=== PATIENT | male | born 1940 | race Caucasian/White ===

== ENCOUNTER 2021-05-18 21:53 | Emergency (ER) | payer MEDICARE, OTHER, SELFPAY ==
[2021-05-18 22:00] VITALS: BP 90/50; PULSE 56; RESP 20; O2SAT 94; BMI 23.2
[2021-05-18 22:01] VITALS: PULSE 53; RESP 19; O2SAT 95
[2021-05-18 22:02] VITALS: BP 107/56; PULSE 51; RESP 14; O2SAT 95
--- NOTE | 2021-05-18 22:13 | DI.RAD.S_ITS ---
PROCEDURE: XR CHEST 1V INDICATIONS: near syncope TECHNIQUE: One view of the chest was acquired. COMPARISON: None. FINDINGS: Surgical changes and devices: Surgical clips near the GE junction. Lungs and pleura: Lungs are clear. No pleural effusions or pneumothorax. Mediastinum: Mediastinal contours appear normal. Heart size is normal. Coronary artery stent visible. Bones and chest wall: No suspicious bony lesions. Degenerative endplate spurs in the thoracic spine. Overlying soft tissues appear unremarkable. IMPRESSION: No acute cardiopulmonary disease. Dictated by: Fang Marley M.D. on 05/18/2021 at 22:24 Approved by: Fang Marley M.D. on 05/18/2021 at 22:25
[2021-05-18 22:28] LABS: Add Manual Diff / Slide Review NO; Basophils Absolute Auto 0 /uL (0-100); Basophils Percent Auto 0.3 % (0-2); Eosinophils Absolute Auto 100 /uL (0-450); Eosinophils Percent Auto 1.4 % (2-4); Hematocrit 41.2 % (41-53); Hemoglobin 13.5 g/dL (13.5-17.5); Lymphocytes Absolute Auto 1900 /uL (1100-4500); Lymphocytes Percent Auto 23.1 % (25-40); Mean Corpuscular HGB Conc 32.7 % (30-36); Mean Corpuscular Hemoglobin 28.9 PG (26-34); Mean Corpuscular Volume 88.4 fL (80-100); Monocytes Absolute Auto 800 /uL (0-900); Monocytes Percent Auto 9.5 % (3-14); Neutrophils Absolute Auto 5500 /uL (1500-7000); Neutrophils Percent Auto 65.7 % (50-75); Platelet Count 199 X10^3/uL (150-400); Red Blood Cell Count 4.66 X10^6/uL (4.5-5.9); White Blood Cell Count 8.3 X10^3/uL (4.5-11.0)
[2021-05-18 22:30] VITALS: BP 94/58; PULSE 53; RESP 13; O2SAT 95
[2021-05-18 22:35] LABS: Alanine Aminotransferase 26 IU/L (<50); Albumin 3.6 g/dL (3.5-5.0); Albumin Globulin Ratio 1.4 (1.0-2.8); Alkaline Phosphatase 98 U/L (38-126); Aspartate Aminotransferase 32 IU/L (17-59); BUN Creatinine Ratio 14.8 (6-22); Bilirubin Total 1.4 mg/dL (0.2-1.3); Blood Urea Nitrogen 20 mg/dL (9-20); Calcium 8.9 mg/dL (8.4-10.2); Carbon Dioxide 24 mmol/L (22-32); Chloride 111 mmol/L (98-107); Creatine Kinase 98 U/L (55-170); Estimated Glomerular Filt Rate 51.1 mL/min (>60); Globulin 2.5 g/dL (1.7-4.1); Glucose 112 mg/dL (80-110); HEMOLYSIS 29 (0-50); Lipase 104 U/L (23-300); Potassium 4.1 mmol/L (3.4-5.1); Sodium 143 mmol/L (137-145); Total Protein 6.1 g/dL (6.3-8.2)
[2021-05-18 22:47] LABS: Troponin I < 0.012 ng/mL (0.01-0.034)
[2021-05-18 23:00] VITALS: BP 97/57; PULSE 57; RESP 13; O2SAT 95
--- NOTE | 2021-05-18 23:06 | ED_ITS ---
HPI - Dizziness General Chief Complaint: Syncope Stated Complaint: nausea, diarrhea hypotension Time Seen by Provider: 05/18/21 21:55 Source: patient and EMS Mode of arrival: EMS Limitations: no limitations History of Present Illness HPI Narrative: Patient 80-year-old male with history of coronary artery disease presenting with diarrhea dizziness and hypotension. He said he started to not feel well early this afternoon this evening he had a very large continuous episodes of diarrhea. He got dizzy and lightheaded as afterwards try to set up the had to lay back down. His sed previously when he had heart attack he did not really have symptoms he was worried that this might be hard to talk so he took nitroglycerin. He tried to sit up again and again felt very dizzy and lightheaded. He never passed out. He denies any chest pain or palpitations. He has no numbness tingling or weakness. He has no nausea or vomiting. He has no abdominal pain. He says that the diarrhea was not black or bloody that he noticed. He is not on any anticoagulation. Related Data Home Medications Medication Instructions Recorded Confirmed aspirin 81 mg tablet 81 mg PO DAILY 05/18/21 05/18/21 atorvastatin 40 mg tablet (Lipitor) 40 mg PO DAILY 05/18/21 05/18/21 carvedilol 6.25 mg tablet 6.25 mg PO BID 05/18/21 05/18/21 cholecalciferol (vitamin D3) 50 50 mcg PO DAILY 05/18/21 05/18/21 mcg (2,000 unit) capsule (Vitamin D3) nitroglycerin 0.4 mg sublingual 0.4 mg SUBLINGUAL Q5-15M PRN 05/18/21 05/18/21 tablet Allergies Allergy/AdvReac Type Severity Reaction Status Date / Time No Known Drug Allergies Allergy Verified 05/19/21 00:45 Review of Systems Review of Systems ROS Unobtainable: All systems reviewed & are unremarkable except as noted in HPI and below Constitutional Constitutional: Denies body ache(s), Denies chills, Denies fatigue and Denies headache(s) Eyes Eyes: Denies blurry vision and Denies diplopia ENT Ears, Nose, Mouth, and Throat: Denies vertigo, Reports dizziness and Denies headache(s) Cardiovascular Cardiovascular: Denies chest pain, Denies rapid heart rate, Denies irregular heart rhythm, Reports lightheadedness, Denies dyspnea and Denies dyspnea on exertion Respiratory Respiratory: Denies cough, Denies dyspnea and Denies dyspnea on exertion Gastrointestinal Gastrointestinal: Reports as per HPI, Reports abdominal pain, Denies nausea and Denies vomiting Genitourinary Genitourinary: Denies urinary frequency and Denies urinary hesitancy Integumentary/Breasts Skin/Breast: Denies rash Neurologic Neurologic: Reports as per HPI, Denies confusion, Denies vertigo, Reports dizziness and Denies headache(s) Psychiatric Psychiatric: Denies confusion Endocrine Endocrine: Denies fatigue Patient History Social History Smoking Status: Never smoker Smoking Status: Never smoker alcohol intake frequency: holidays/special occasions only Substance Use Type: does not use Exam Initial Vital Signs Initial Vital Signs: Vital Signs Pulse Rate 56 L 05/18/21 22:00 Respiratory Rate 20 05/18/21 22:00 Blood Pressure 90/50 L 05/18/21 22:00 Pulse Oximetry 94 05/18/21 22:00 GENERAL: Alert well-appearing 80-year-old maleand in [no acute] distress. HEENT: Head atraumatic,EOMI, pupils reactive, face symmetric, [moist] mucous membranes CARDIOVASCULAR: Regular rate and rhythm without murmurs, rubs or gallops. RESPIRATORY: Breath sounds equal bilaterally, no wheezes rales or rhonchi. ABDOMEN: Soft, nontender. Normoactive bowel sounds all 4 quadrants. No guarding or rebound. EXTREMITIES: Normal range of motion, no clubbing or edema. Neurovascularly intact NEUROLOGICAL: Alert and oriented x4.Normal gait and speech. SKIN: Warm, dry, no laceration, no petechiae, no rashes or lesions. Course Orders Ordered: ED Orders 05/18/21 21:30 Complete Blood Count AUTO DIFF Stat Comprehensive Metabolic Panel Stat Lipase Stat Troponin & CK Cardiac Panel Stat 05/18/21 22:13 XR chest 1V Stat EKG-12 Lead Stat 05/18/21 23:30 Troponin I Stat Discontinued Medications Sodium Chloride (Normal Saline 0.9%) 1,000 mls @ 1,000 mls/hr IV BOLUS ONE Stop: 05/19/21 01:42 Last Infusion: 05/19/21 01:44 Dose: 0 mls/hr Documented by: Admin: 05/19/21 00:50 Dose: 1,000 mls/hr Documented by: MARÍA ELENA Vital Signs Vital signs: Vital Signs - 8 hr 05/18/21 22:00 05/18/21 22:01 05/18/21 22:02 Pulse Rate 56 L 53 L 51 L Respiratory Rate 20 19 14 Blood Pressure 90/50 L 107/56 L Pulse Oximetry 94 95 95 05/18/21 22:30 05/18/21 23:00 05/18/21 23:30 Pulse Rate 53 L 57 L 63 Respiratory Rate 13 13 19 Blood Pressure 94/58 L 97/57 L 95/52 L Pulse Oximetry 95 95 96 05/19/21 00:00 05/19/21 00:30 05/19/21 01:00 Pulse Rate 61 61 73 Respiratory Rate 17 15 13 Blood Pressure 95/57 L 100/57 L 92/55 L Pulse Oximetry 97 98 97 05/19/21 01:04 05/19/21 01:25 05/19/21 01:30 Pulse Rate 73 82 63 Respiratory Rate 19 Blood Pressure 125/62 111/59 L 111/61 Pulse Oximetry 99 96 97 MDM - Dizziness Lab Data Result diagrams: 05/18/21 21:30 05/18/21 21:30 Labs: Lab Results 05/18/21 05/18/21 05/19/21 Range/Units 21:30 21:30 00:08 WBC 8.3 (4.5-11.0) X10^3/uL RBC 4.66 (4.5-5.9) X10^6/uL Hgb 13.5 (13.5-17.5) g/dL Hct 41.2 (41-53) % MCV 88.4 (80-100) fL MCH 28.9 (26-34) PG MCHC 32.7 (30-36) % RDW 14.0 (11.6-14.8) % Plt Count 199 (150-400) X10^3/uL Neut % (Auto) 65.7 (50-75) % Lymph % (Auto) 23.1 L (25-40) % [place] % (Auto) 9.5 (3-14) % Eos % (Auto) 1.4 L (2-4) % Baso % (Auto) 0.3 (0-2) % Neut # (Auto) 5500 (4358-4968) /uL Lymph # (Auto) 1900 (6382-8339) /uL [place] # (Auto) 800 (0-900) /uL Eos # (Auto) 100 (0-450) /uL Baso # (Auto) 0 (0-100) /uL Sodium 143 (137-145) mmol/L Potassium 4.1 (3.4-5.1) mmol/L Chloride 111 H (98-107) mmol/L Carbon Dioxide 24 (22-32) mmol/L BUN 20 (9-20) mg/dL Creatinine 1.35 H (0.66-1.25) mg/dL Estimated GFR 51.1 L (>60) mL/min BUN/Creatinine Ratio 14.8 (6-22) Glucose 112 H (80-110) mg/dL Calcium 8.9 (8.4-10.2) mg/dL Total Bilirubin 1.4 H (0.2-1.3) mg/dL AST 32 (17-59) IU/L ALT 26 (<50) IU/L Alkaline Phosphatase 98 (38-126) U/L Total Creatine Kinase 98 (55-170) U/L CK-MB (CK-2) TNP CK-MB (CK-2) Rel Index TNP Troponin I < 0.012 < 0.012 (0.01-0.034) ng/mL Total Protein 6.1 L (6.3-8.2) g/dL Albumin 3.6 (3.5-5.0) g/dL Globulin 2.5 (1.7-4.1) g/dL Albumin/Globulin Ratio 1.4 (1.0-2.8) Lipase 104 (23-300) U/L Imaging Data Chest x-ray: Radiologist's Impression: PROCEDURE:? XR CHEST 1V ? INDICATIONS:? near syncope ? TECHNIQUE:? One view of the chest was acquired.? ? COMPARISON:? None. ? FINDINGS:? ? Surgical changes and devices:? Surgical clips near the GE junction. ? Lungs and pleura:? Lungs are clear.? No pleural effusions or pneumothorax.? ? Mediastinum:? Mediastinal contours appear normal.? Heart size is normal.? Coronary artery stent visible. ? Bones and chest wall:? No suspicious bony lesions.? Degenerative endplate spurs in the thoracic spine.? Overlying soft tissues appear unremarkable.? ? IMPRESSION:? No acute cardiopulmonary disease. ? ? Dictated by: Fang Marley M.D. on 05/18/2021 at 22:24 ? ? ECG Data Interpretation: Rate 51 ID interval 144 QRS [address] changes no T-wave inversions. MDM Narrative Medical decision making narrative: Patient is hypotensive after 1 large episode of diarrhea and nitroglycerin. This is unlikely to be a ruptured abdominal aortic aneurysm, there seems to be obvious explanation for hypotension and he is without abdominal pain.Creatinine is slightly elevated however unsure what his baseline is. He does receive 2 L of IV fluid without signs of congestive heart failure. Blood pressure does return to a systolic greater than 100 he overall is asymptomatic and feeling significantly better. He ambulates in the ED withou t any difficulty or symptoms. He has 2- troponins and no changes on EKG. Unlikely to be cardiac. He does finally admit to some very mild intermittent chest discomfort which he his grades as a 1 however he says that he has had this off and on for a long time and it is unchanged today. This is more likely a gastroenteritis however at this time he has not had any nausea or vomiting. I discussed all findings with the patient and , Education has been performed regarding treatment plan, diagnosis, warning signs and symptoms and all concerns have been addressed. Verbally agree with and understood all of the above. Discharge Plan Departure Patient Disposition: Home Clinical Impression: Vasovagal syncope, Diarrhea Instructions: DI for Syncope in Adults (Fainting), Diarrhea Activity Restrictions/Additional Instructions: *You have been diagnosed with vasovagal syncope and diarrhea *What to do: You likely got extremely dizzy and lightheaded due to some mild dehydration and diarrhea. Increase fluid intake with water or Gatorade like substance Nitroglycerin did not help this. I recommend avoiding nitroglycerin when he feel dizzy and lightheaded. May use nitroglycerin if you have any sort of chest discomfort and are not feeling dizzy and lightheaded. *Continue to take medications as directed *Follow up with your primary care provider in 2-3 days *Return to ER if you should have increasing dizziness, lightheadedness, persistent diarrhea, abdominal pain chest pain or any new, worsening or concerning symptoms Prescriptions: No Action carvedilol 6.25 mg Tablet 6.25 mg PO BID RF: 0 nitroglycerin 0.4 mg Tablet, Sublingual 0.4 mg SUBLINGUAL Q5-15M PRN (Reason: Chest Pain) RF: 0 cholecalciferol (vitamin D3) [Vitamin D3] 50 mcg (2,000 unit) Capsule 50 mcg PO DAILY RF: 0 atorvastatin [Lipitor] 40 mg Tablet 40 mg PO DAILY RF: 0 aspirin 81 mg Tablet 81 mg PO DAILY RF: 0 Referrals: Jose Reynolds MD [Primary Care Provider] -
[2021-05-18 23:30] VITALS: BP 95/52; PULSE 63; RESP 19; O2SAT 96
[2021-05-19] VITALS: BP 95/57; PULSE 61; RESP 17; O2SAT 97
[2021-05-19 00:30] VITALS: BP 100/57; PULSE 61; RESP 15; O2SAT 98
[2021-05-19 00:37] LABS: Troponin I < 0.012 ng/mL (0.01-0.034)
[2021-05-19] MEDS: SODIUM CHLORIDE 0.9% 1,000 ML 1000 ML IV (00:50)
[2021-05-19 01:00] VITALS: BP 92/55; PULSE 73; RESP 13; O2SAT 97
[2021-05-19 01:04] VITALS: BP 125/62; PULSE 73; RESP 19; O2SAT 99
[2021-05-19 01:25] VITALS: BP 111/59; PULSE 82; O2SAT 96
[2021-05-19 01:30] VITALS: BP 111/61; PULSE 63; O2SAT 97
== END 2021-05-19 01:51 | disposition home or self-care (01) ==
PROVIDERS: Emergency Provider Emergency Medicine; PCP Student in an Organized Health Care Education/Training Program
DX: R55 Syncope and collapse (principal); I95.9 Hypotension, unspecified; R19.7 Diarrhea, unspecified; R42 Dizziness and giddiness
CPT/HCPCS: 36415; 71045; 80053; 82550; 83690; 84484; 85025; 93005; 96360; 99284